=== PATIENT | female | born 1990 | race African-American/Black ===

== ENCOUNTER 2016-12-29 22:54 | Emergency (ER) | payer OTHER ==
[2016-12-30 02:46] VITALS: BP 163/90
== END 2016-12-30 02:46 | disposition home or self-care (01) ==
LOC: ED 22:54
DX: M54.2 Cervicalgia (principal); M54.6 Pain in thoracic spine; M54.5 Low back pain; W01.0XXA Fall on same level from slipping, tripping and stumbling without subsequent striking against object, initial encounter; Y93.89 Activity, other specified; Y92.89 Other specified places as the place of occurrence of the external cause; Y99.8 Other external cause status
CPT/HCPCS: J1885; J3010